=== PATIENT | female | born 1950 | race American Indian/Alaskan Native ===

== ENCOUNTER 2021-09-21 09:52 | Emergency (ER) | payer MEDICARE ==
[2021-09-21 11:17] LABS: Bacteria,Urine 1+ /HPF (Negative); Bilirubin,Urine NEG (Negative); Blood,Urine NEG (Negative); Color,Urine Yellow (Yellow); Mucus,Urine FEW /HPF; Protein,Urine <15 mg/dL mg/dL (Negative); Urobilinogen,Urine < 2.0 mg/dL (<2.0)
[2021-09-21 11:19] LABS: Hematocrit 38.3 % (30.3-42.9); Hemoglobin 12.8 gm/dl (10.1-14.3); Mean Corpuscular HGB Conc 33 % (30-34); Mean Corpuscular Volume 87 fl (79-97); Platelet Count 183 K/mm3 (140-440); Red Blood Count 4.39 M/mm3 (3.65-5.03)
[2021-09-21 11:30] LABS: Albumin 4.3 g/dL (3.9-5); Calcium 9.1 mg/dL (8.4-10.2)
[2021-09-21 12:37] VITALS: BP 108/65
[2021-09-21] MEDS ORDERED: NITROFURANTOIN MONOHYD/M-CRYST 100 MG CAP PO ONE (12:48)
[2021-09-21 12:54] LABS: Band Neutrophils # (Manual) 0.3 K/mm3; Eosinophils % (Manual) 0 % (0.0-4.3); Total Cells Counted 100
[2021-09-21 12:55] LABS: Platelet Estimate Consistent w Auto; RBC Morphology Normal
--- NOTE | 2021-09-21 12:55 | Emergency Department Report ---
- General Chief complaint: Weakness Stated complaint: DEHYRATION Time Seen by Provider: 09/21/21 12:36 Source: patient Mode of arrival: Ambulatory Limitations: No Limitations - History of Present Illness Initial comments: 71-year-old female presents to the hospital complaining of generalized weakness insulin exposure 3 days ago. Patient states she was sitting in the direct hot s un without a hat for prolonged period of time. She complained of headache, tenderness to her scalp, lightheadedness, and generalized weakness. Patient has been aggressively drinking fluids including sports drinks the last several days and avoiding additional sun exposure. Since then her urine has changed from dark color to a light yellow color. She states that most of her symptoms have resolved with the exception of continued tenderness to her scalp and some mild weakness. Patient states that she is no longer feeling unsteady with ambulation. She called a nurse's advice line and was advised to come to the ER for IV fluids. She denies dysuria, frequency, nausea, vomiting, or flank pain - Related Data Previous Rx's Medication Instructions Recorded Last Taken Type Nitrofurantoin Alger/M-Cryst 100 mg PO BID #10 capsule 09/21/21 Unknown Rx [Macrobid CAP] Allergies Allergy/AdvReac Type Severity Reaction Status Date / Time No Known Allergies Allergy Unverified 09/21/21 10:22 ED Review of Systems ROS: Stated complaint: DEHYRATION Other details as noted in HPI Comment: All other systems reviewed and negative ED Past Medical Hx - Past Medical History Previous Medical History?: Yes Additional medical history: High cholesterol, 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 - Surgical History Past Surgical History?: No - Medications Home Medications: Home Medications Medication Instructions Recorded Confirmed Last Taken Type Nitrofurantoin Alger/M-Cryst 100 mg PO BID #10 capsule 09/21/21 Unknown Rx [Macrobid CAP] ED Physical Exam - General Limitations: No Limitations - Other Other exam information: General: No acute distress Head: Atraumatic, tenderness to scalp without sores or blisters Eyes: normal appearance ENT: Moist mucous membranes Neck: Normal appearance, no midline tenderness Chest: Clear to auscultation bilaterally CV: Regular rate and rhythm Abdomen: Soft, normal bowel sounds, nontender, nondistended, no rebound or guarding Back: Normal inspection Extremity: Normal inspection, full range of motion Neuro: Alert O x 3, no facial asymmetry, speech clear, no gross motor sensory deficit, gfomso-[id number]-[id number] function intact, gait steady Psych: Appropriate behavior Skin: No rash ED Course Vital Signs 09/21/21 10:19 Temperature 99.4 F Pulse Rate 86 Respiratory 18 Rate Blood Pressure 108/65 O2 Sat by Pulse 99 Oximetry ED Medical Decision Making - Lab Data Result diagrams: 09/21/21 10:42 09/21/21 10:42 Lab Results 09/21/21 09/21/21 09/21/21 Range/Units 10:42 10:42 Unknown WBC 4.1 L (4.5-11.0) K/mm3 RBC 4.39 (3.65-5.03) M/mm3 Hgb 12.8 (10.1-14.3) gm/dl Hct 38.3 (30.3-42.9) % MCV 87 (79-97) fl MCH 29 (28-32) pg MCHC 33 (30-34) % RDW 13.0 L (13.2-15.2) % Plt Count 183 (140-440) K/mm3 Alger % (Auto) Residential Nurse Sodium 136 L (137-145) mmol/L Potassium 4.1 (3.6-5.0) mmol/L Chloride 101.4 (98-107) mmol/L Carbon Dioxide 24 (22-30) mmol/L Anion Gap 15 mmol/L BUN 17 (7-17) mg/dL Creatinine 1.0 (0.6-1.2) mg/dL Estimated GFR 55 ml/min BUN/Creatinine Ratio 17 % Glucose 89 (65-100) mg/dL Calcium 9.1 (8.4-10.2) mg/dL Total Bilirubin 0.20 (0.1-1.2) mg/dL AST 19 (5-40) units/L ALT 11 (7-56) units/L Alkaline Phosphatase 83 (35-129) units/L Total Protein 7.0 (6.3-8.2) g/dL Albumin 4.3 (3.9-5) g/dL Albumin/Globulin Ratio 1.6 % Urine Color Yellow (Yellow) Urine Turbidity Slightly-cloudy (Clear) Urine pH 5.0 (5.0-7.0) Ur Specific [place] 1.005 (1.003-1.030) Urine Protein <15 mg/dl (Negative) mg/dL Urine Glucose (UA) Neg (Negative) mg/dL Urine Ketones Neg (Negative) mg/dL Urine Blood Neg (Negative) Urine Nitrite Neg (Negative) Urine Bilirubin Neg (Negative) Urine Urobilinogen < 2.0 (<2.0) mg/dL Ur Leukocyte Esterase Lg (Negative) Urine WBC (Auto) 65.0 H (0.0-6.0) /HPF Urine RBC (Auto) 4.0 (0.0-6.0) /HPF U Epithel Cells (Auto) 2.0 (0-13.0) /HPF Urine Bacteria (Auto) 1+ (Negative) /HPF Urine Mucus Few /HPF - Medical Decision Making 71-year-old female presents to the hospital planing of generalized weakness sta tus post sun exposure. I do suspect that patient was dehydrated given dark discoloration in urine and previous symptoms. Since sun exposure she has been aggressively hydrating at home and her dehydration has resolved as indicated by her urine specific gravity, urine color, and normal renal function and electrolytes. I do suspect she has residual symptoms secondary to UTI as indicated by her urine results. No signs of urosepsis or septic shock necessitating IV fluids or admission at this time. Patient also has residual scalp tenderness likely secondary to sunburn. Patient was encouraged to wear a hat when in sun exposed area, avoid prolonged sun exposure and heat, orally hydrate, and take antibiotics as prescribed. She was educated about the possibility of antibiotic resistance and need to return to the hospital if symptoms worsen instead of improve Critical Care Time: No Critical care attestation.: If time is entered above; I have spent that time in minutes in the direct care of this critically ill patient, excluding procedure time. ED Disposition Clinical Impression: UTI (urinary tract infection), Sunburn Disposition: 01 HOME / SELF CARE / HOMELESS Is pt being admited?: No Does the pt Need Aspirin: No Condition: Stable Instructions: Urinary Tract Infection, Adult, Cwug-eb-[id number], Sunburn, Adult, [id number] Additional Instructions: Take the medication as prescribed. Follow-up with your doctor or doctor/clinic provided. Return if symptoms worsen as indicated by your discharge instructions. Prescriptions: Nitrofurantoin Alger/M-Cryst [Macrobid CAP] 100 mg PO BID #10 capsule Referrals: your, doctor [Other] - 3-5 Days KRYSTAL BENNETT MD [Staff Physician] - 3-5 Days Time of Disposition: 12:50
== END 2021-09-21 13:10 | disposition home or self-care (01) ==
LOC: ED 09:52
DX: N39.0 Urinary tract infection, site not specified (principal); L55.9 Sunburn, unspecified; E78.00 Pure hypercholesterolemia, unspecified
CPT/HCPCS: 36415; 80053; 81001; 85007; 85025; 87086; 99283